=== PATIENT | male | born 1980 | race Hispanic/Latino ===

== ENCOUNTER 2017-02-12 04:30 | Emergency (ER) | payer MEDICAID ==
[2017-02-12 04:39] VITALS: BMI 20.7
[2017-02-12 04:40] VITALS: RESP 16; TEMP 98.2
[2017-02-12] MEDS ORDERED: Tmp-Smz 800 mg-160 mg DS Tab PO ONE (04:42)
--- NOTE | 2017-02-12 04:42 | ED PDOC ---
Arrival/HPI - General Chief Complaint: Abnormal Skin Integrity Time Seen by Provider: 02/12/17 04:31 Historian: Patient - History of Present Illness Narrative History of Present Illness (Text): 02/12/17 04:42 Farhat Garcia is a 35 year old male, whose past medical history includes seizures, who presents to the ED complaining of swelling to his left thumb. Patient states he has been biting the cuticles of nails recently and developed swelling to his left thumb with associated discomfort. Patient denies any fever , chills, chest pain, shortness of breath, nausea, vomiting, diarrhea, urinary symptoms, headache, dizziness, or any other complaints. Time/Duration: Other (today) Symptom Onset: Gradual Symptom Course: Unchanged Activities at Onset: Rest, Light Context: Home Past Medical History - Provider Review Nursing Documentation Reviewed: Yes - Infectious Disease Hx of Infectious Diseases: None - Tetanus Immunization Tetanus Immunization: Unknown - Pulmonary Other/Comment: Lung surgery for blebs - Neurological Hx Seizures: Yes Other/Comment: H/O TBI - HEENT Other/Comment: Eye surgery as a kid - Renal Other/Comment: Born with 1 kidney - Integumentary Hx Psoriasis: Yes - Musculoskeletal/Rheumatological Hx Arthritis: Yes (Psoriatic) - Psychiatric Hx Depression: Yes Hx Emotional Abuse: No Hx Physical Abuse: No Hx Substance Use: Yes (marjunna) - Surgical History Other/Comment: R knee srugery. Lung surgery. Eye surgery - Anesthesia Hx Anesthesia: No - Suicidal Assessment Feels Threatened In Home Enviroment: No Family/Social History - Physician Review Nursing Documentation Reviewed: Yes Family/Social History: No Known Family HX Smoking Status: Never Smoked Hx Alcohol Use: Yes Hx Substance Use: Yes (marjunna) Hx Substance Use Treatment: No Allergies/Home Meds Allergies/Adverse Reactions: Allergies No Known Allergies Allergy (Verified 02/27/12 15:58) Home Medications: Home Meds Medication Instructions Recorded Confirmed Alprazolam [Xanax] 0 mg PO 02/27/12 02/27/12 buPROPion SR [Wellbutrin SR 150 MG] 150 mg PO BID 02/27/12 02/27/12 Bupropion Hydrochloride 0 mg PO 02/16/13 02/16/13 [Wellbutrin] Review of Systems - Physician Review All systems were reviewed & negative as marked: Yes - Review of Systems Constitutional: Normal. absent: Fevers Eyes: Normal ENT: Normal Respiratory: Normal. absent: SOB, Cough Cardiovascular: Normal. absent: Chest Pain, Syncope Gastrointestinal: Normal. absent: Abdominal Pain, Diarrhea, Nausea, Vomiting Genitourinary Male: Normal. absent: Dysuria, Frequency, Hematuria, Urinary Output Changes Musculoskeletal: Normal. absent: Back Pain, Neck Pain Skin: Normal. absent: Rash Neurological: Normal. absent: Headache, Dizziness Endocrine: Normal Hemo/Lymphatic: Normal Psychiatric: Normal Physical Exam Vital Signs Reviewed: Yes Vital Signs Temp Pulse Resp BP Pulse Ox 02/12/17 04:40 98.2 F 95 H 16 148/102 H 98 Temperature: Afebrile Blood Pressure: Normal Pulse: Regular Respiratory Rate: Normal Appearance: Positive for: Well-Appearing, Non-Toxic, Comfortable Pain Distress: None Mental Status: Positive for: Alert and Oriented X 3 - Systems Exam Head: Present: Atraumatic, Normocephalic Pupils: Present: PERRL Extroacular Muscles: Present: EOMI Conjunctiva: Present: Normal Mouth: Present: Moist Mucous Membranes Neck: Present: Normal Range of Motion Respiratory/Chest: Present: Clear to Auscultation, Good Air Exchange. No: Respiratory Distress, Accessory Muscle Use Cardiovascular: Present: Regular Rate and Rhythm, Normal S1, S2. No: Murmurs Abdomen: Present: Normal Bowel Sounds. No: Tenderness, Distention, Peritoneal Signs Upper Extremity: Present: Swelling (Left thumb serlling with erythema), Erythema. No: Cyanosis, Edema, Neurovascularly Intact, Capillary Refill < 2s Lower Extremity: Present: Normal Inspection. No: Edema Neurological: Present: GCS=15, CN II-XII Intact, Speech Normal Skin: Present: Warm, Dry, Normal Color. No: Rashes Psychiatric: Present: Alert, Oriented x 3, Normal Insight, Normal Concentration Medical Decision Making ED Course and Treatment: 02/12/17 04:42 Impression: 36 year old male complaining of left thumb swelling. Differential Diagnosis include but are not limited to: Plan: -- Reassess and disposition Prior Visits: Notes and results from previous visits were reviewed. \ Progress Notes: Re-evaluation Time: 05:24 Reassessment Condition: Re-examined, Improved - Lab Interpretations I have reviewed the lab results: Yes - Medication Orders Current Medication Orders: Discontinued Medications Cephalexin Monohydrate (Keflex) 500 mg PO STAT STA PRN Reason: Protocol Stop: 02/12/17 04:43 Last Admin: 02/12/17 05:20 Dose: 500 mg Trimethoprim/Sulfamethoxazole (Bactrim Ds Tab) 1 tab PO ONCE ONE PRN Reason: Protocol Stop: 02/12/17 04:43 Last Admin: 02/12/17 05:20 Dose: 1 tab - Scribe Statement The provider has reviewed the documentation as recorded by the Billibluciano Flores All medical record entries made by the Billibluciano were at my direction and personally dictated by me. I have reviewed the chart and agree that the record accurately reflects my personal performance of the history, physical exam, medical decision making, and the department course for this patient. I have also personally directed, reviewed, and agree with the discharge instructions and disposition. Disposition/Present on Arrival - Present on Arrival Any Indicators Present on Arrival: No History of DVT/PE: No History of Uncontrolled Diabetes: No Urinary Catheter: No History of Decub. Ulcer: No History Surgical Site Infection Following: None - Disposition Have Diagnosis and Disposition been Completed?: Yes Diagnosis: Paronychia Disposition: HOME/ ROUTINE Disposition Time: 05:26 Condition: GOOD Discharge Instructions (ExitCare): Paronychia (ED) Prescriptions: Sulfamethoxazole/Trimethoprim [Bactrim DS 800 mg-160 mg] 1 tab PO BID #14 tab Cephalexin [Keflex] 500 mg PO BID #14 capsule
[2017-02-12 05:50] VITALS: BP 124/92; PULSE 89; O2SAT 99
== END 2017-02-12 06:03 | disposition home or self-care (01) ==
LOC: ED 04:30
DX: L03.012 Cellulitis of left finger (principal)